=== PATIENT | male | born 1965 | race Two or more races ===

== ENCOUNTER 2017-05-27 08:29 | Day surgery (SDC) | payer BC ==
[2017-05-26 14:19] VITALS: BP 126/90
[2017-05-26 15:10] LABS: WHITE BLOOD COUNT 7.9 x10^3/uL (3.4-10)
[2017-05-26 15:18] LABS: BLOOD UREA NITROGEN 15 mg/dL (7-18)
[~2017-05-27] VITALS: Ht 180.3 cm; Wt 97.7 kg
[~2017-05-27 08:29] MED LIST: ASPI-496 PO; ASPI-621 PO; ATOR40TA78 PO; METO25TA35 PO; NITR0.4T SL; PRAS10TA4 PO
[2017-05-27] MEDS ORDERED: BISACODYL 5 MG EC TABLET PO PRN (09:30)
[2017-05-27] MEDS ORDERED: BISACODYL 10 MG SUPP PR PRN (09:30)
[2017-05-27] MEDS ORDERED: ACETAMINOPHEN 325 MG TABLET PO PRN (09:30)
[2017-05-27] MEDS ORDERED: ZOLPIDEM 5MG TABLET PO PRN (09:30)
[2017-05-27] MEDS ORDERED: ONDANSETRON 2MG/ML, 2ML IVPush PRN (09:30)
[2017-05-27] MEDS ORDERED: ASPIRIN 325 MG TABLET EC ONE (10:10)
[2017-05-27] MEDS ORDERED: ASPIRIN 325 MG TABLET EC PO ONE (11:00)
[2017-05-27] MEDS ORDERED: MIDAZOLAM 1 MG/ML, 5ML ONE (11:15)
[2017-05-27] MEDS ORDERED: BIVALIRUDIN 250 MG ONE (11:16)
[2017-05-27] MEDS ORDERED: TICAGRELOR 90 MG TABLET ONE (11:16)
[2017-05-27] MEDS ORDERED: HEPARIN 1,000 UNITS/ML, 10ML ONE (11:16)
[2017-05-27] MEDS ORDERED: FENTANYL PF 100 MCG/2ML ONE (11:16)
[2017-05-27] MEDS ORDERED: LIDOCAINE 2%, 20ML ONE (11:16)
[2017-05-27] MEDS ORDERED: VERAPAMIL 2.5 MG/ML, 2ML ONE (11:16)
[2017-05-27] MEDS ORDERED: NITROGLYCERIN 0.4 MG BOTTLE (25 TABS) SL PRN (11:30)
[2017-05-27] MEDS ORDERED: ATORVASTATIN 40 MG TABLET PO SCH (21:00)
[2017-05-27] MEDS ORDERED: METOPROLOL TARTRATE 25 MG TABLET PO SCH (21:00)
[2017-05-28] MEDS ORDERED: ASPIRIN 81 MG TABLET EC PO SCH (09:00)
== END 2017-05-27 14:36 ==
LOC: CACL 08:29
PROVIDERS: ATTEND Internal Medicine Cardiovascular Disease
DX: I25.10 Atherosclerotic heart disease of native coronary artery without angina pectoris (principal); Z79.82 Long term (current) use of aspirin; Z88.5 Allergy status to narcotic agent
CPT/HCPCS: 36415; 80048; 85025; 93458; 99156; 99157; C1760; C1894; J1644; J2250; J3010; J3490; Q9967; J0583